=== PATIENT | male | born 1990 | race Caucasian/White ===

== ENCOUNTER → 2017-12-31 | Emergency (ER) | payer OTHER ==
[~2017-12-31] VITALS: Ht 170.2 cm; Wt 78.0 kg
[~2017-12-31] MED LIST: BENADRYL25 MG PO; MEDROLPACK PO; ZYRTEC10 M3 PO
== END | disposition home or self-care (01) ==
LOC: ER 08:21
DX: T78.1XXA Other adverse food reactions, not elsewhere classified, initial encounter (principal); R21 Rash and other nonspecific skin eruption

== ENCOUNTER 2018-08-11 18:43 | Emergency (ER) | payer OTHER ==
[~2018-08-11] VITALS: Ht 167.6 cm; Wt 74.8 kg
== END 2018-08-11 22:01 | disposition home or self-care (01) ==
LOC: ER 18:43
DX: H10.212 Acute toxic conjunctivitis, left eye (principal); H57.8 Other specified disorders of eye and adnexa